=== PATIENT | female | born 1980 | race Caucasian/White ===

== ENCOUNTER → 2016-10-15 | Outpatient (CLI) | payer OTHER ==
--- NOTE | 2016-10-15 17:17 | MA ---
Screening Digital Mammogram, With iCAD Analysis Clinical Indications: Routine screening. The patient has had triple negative right breast cancer tr eated with lumpectomy, chemotherapy, and radiation. Additionally, the patient has had a right axilla ry sentinel node procedure. Technique: Standard cephalocaudal projections are obtained. Digital breast tomosynthesis was perfor med in the MLO projection, with reconstruction at 1.0-mm slice thickness and composite MLO views reyna nstructed. This examination is processed by the iCAD computer aided detection system. Comparison: Mammography, ultrasound, and MRI studies from August 2015. Breast Density: Type B; Scattered fibroglandular densities. Findings: CAD was reviewed. There is asymmetric opacity at the lumpectomy site in the far posterior upper right breast. No masses, suspicious calcifications, or secondary signs of malignancy are seen . There has been no significant change in the appearance of either breast. Impression: Benign post lumpectomy mammography, BI-RADS 2. Recommendation: Routine mammographic screening in one year as long as physical examination is negati ve. [facility] will send a result letter to the patient. Negative mammography should not preclude additional workup of a clinically suspicious finding. The patient's information is entered into a reminder system with a target due date for her next mammo gram.
== END ==
LOC: FIMAGING 15:42
DX: Z12.31 Encounter for screening mammogram for malignant neoplasm of breast (principal); Z85.3 Personal history of malignant neoplasm of breast
CPT/HCPCS: G0202